=== PATIENT | female | born 1930 | race Caucasian/White ===

== ENCOUNTER 2021-10-25 09:49 | Day surgery (SDC) | payer MEDICARE ==
[2021-10-24 12:54] LABS: BASOPHILS # (AUTO) 0.1 X10'3 (0-0.2); BASOPHILS % (AUTO) 0.9 % (0-1); EOSINOPHILS # (AUTO) 0.1 X10'3 (0-0.9); HEMATOCRIT 35.1 % (35.0-45.0); HEMOGLOBIN 11.7 g/dl (12.0-16.0); LYMPHOCYTES # (AUTO) 1.3 X10'3 (1.1-4.8); LYMPHOCYTES % (AUTO) 20.5 % (21-51); MEAN CORPUSCULAR HEMOGLOBIN 29.4 PG (27.0-31.0); MEAN CORPUSCULAR HGB CONC 33.2 g/dL (33.0-36.5); MEAN CORPUSCULAR VOLUME 88.6 FL (78-98); MEAN PLATELET VOLUME 7.1 FL (7.4-10.4); MONOCYTES # (AUTO) 0.4 X10'3 (0-0.9); MONOCYTES % (AUTO) 6.8 % (2-12); NEUTROPHILS # (AUTO) 4.4 X10'3 (1.8-7.7); NEUTROPHILS % (AUTO) 69.8 % (42-75); PLATELET COUNT 226 X10'3 (140-440); RED BLOOD COUNT 3.97 X10'6 (4.20-5.60); WHITE BLOOD COUNT 6.3 X10'3 (4.5-11.0)
[2021-10-24 13:04] LABS: APTT 25 SECONDS (22-32)
[2021-10-24 13:07] LABS: ALBUMIN 3.8 G/DL (3.4-5.0); ANION GAP 7 (8-16); BLOOD UREA NITROGEN 24 MG/DL (7-18); BUN/CREATININE RATIO 21.4 (6.6-38.0); CALCIUM 10.2 MG/DL (8.5-10.1); CHLORIDE 104 MMOL/L (99-107); CREATININE 1.12 MG/DL (0.40-0.90); GLUCOSE 97 MG/DL (70-104); MAGNESIUM 1.9 MG/DL (1.5-2.4); POTASSIUM 3.7 MMOL/L (3.5-5.1); SODIUM 140 MMOL/L (135-145); TOTAL CARBON DIOXIDE 29.1 MMOL/L (24-32); eGFR 46 ML/MIN
[2021-10-25] VITALS (10 sets, daily range): BP systolic 152–174; BP diastolic 70–84
[~2021-10-25] VITALS: Ht 170.2 cm; Wt 75.6 kg
[2021-10-25] MEDS ORDERED: ASPI-1265 PO (10:56)
[2021-10-25] MEDS ORDERED: CLOP75TA34 PO (10:56)
[2021-10-25] MEDS ORDERED: TRAM50TA2 PO (10:56)
[2021-10-25] MEDS ORDERED: EZET10TA48 PO (10:56)
[2021-10-25] MEDS ORDERED: NITR0.4T48 SL (10:56)
[2021-10-25] MEDS ORDERED: AMLO10TA13 PO (10:56)
[2021-10-25] MEDS ORDERED: LOSA25TA41 PO (10:56)
[2021-10-25] MEDS ORDERED: LOP25T PO (10:58)
[2021-10-25] MEDS ORDERED: LEVO50TA8 PO (10:59)
[2021-10-25] MEDS ORDERED: UBID30CA11 PO (11:00)
[2021-10-25] MEDS ORDERED: NIA500ERT PO (11:01)
[2021-10-25] MEDS ORDERED: CHOL100025 PO (11:01)
[2021-10-25] MEDS ORDERED: KRIL1CAP PO (11:03)
[2021-10-25] MEDS ORDERED: cefazolin/dext.iso 2gm/50ml 50 ML IV SCH (11:10)
[2021-10-25] MEDS ORDERED: clindamycin 600mg/D5W 50ml 50 ML IV ONE (11:53)
[2021-10-25] MEDS ORDERED: clindamycin phosphate 150mg/ml inj. ONE (11:54)
[2021-10-25] MEDS ORDERED: midazolam 1 mg/ML 2ml injection ONE ×2 (11:54→13:25)
[2021-10-25] MEDS ORDERED: fentaNYL/PF 50MCG/1 ML 2ML syringe ONE (11:54)
[2021-10-25] MEDS ORDERED: LIDOcaine 1% W/epiNEPHrine 1:100,000 20ml vial ONE (11:54)
[2021-10-25] MEDS ORDERED: metoprolol tartrate 1mg/ml inj IV ONE (14:20)
[2021-10-25] MEDS ORDERED: vancomycin/NS 1 GM ADD-VANTAGE 250 ML IV ONE (15:25)
[2021-10-25] MEDS ORDERED: HYDROcodone/acetaminophen 5mg/325mg tablet PO PRN (16:00)
== END 2021-10-25 18:35 | disposition home or self-care (01) ==
LOC: SSTAY O 09:49
PROVIDERS: ATTEND Internal Medicine Cardiovascular Disease
DX: I49.5 Sick sinus syndrome (principal); I25.10 Atherosclerotic heart disease of native coronary artery without angina pectoris; I10 Essential (primary) hypertension; I48.91 Unspecified atrial fibrillation; E11.9 Type 2 diabetes mellitus without complications; E78.5 Hyperlipidemia, unspecified; I47.1 Supraventricular tachycardia; Z88.8 Allergy status to other drugs, medicaments and biological substances; Z79.82 Long term (current) use of aspirin; Z79.899 Other long term (current) drug therapy; Z95.5 Presence of coronary angioplasty implant and graft
CPT/HCPCS: 33208; 36415; 71046; 80048; 83735; 85025; 85610; 85730; 93005; 99152; 99153; C1894; J2250; J3010; J3370; J3490; A4565; A4620; A6258; A6449